=== PATIENT | female | born 1985 | race Hispanic/Latino ===

== ENCOUNTER 2021-10-08 12:59 | Emergency (ER) | payer OTHER ==
[~2021-10-08] VITALS: Ht 157.5 cm; Wt 79.4 kg
[2021-10-08 13:01] VITALS: BP 136/83
== END 2021-10-08 14:14 | disposition home or self-care (01) ==
LOC: EDH 12:59
DX: A08.4 Viral intestinal infection, unspecified (principal); B34.9 Viral infection, unspecified; Z20.822 Contact with and (suspected) exposure to COVID-19
CPT/HCPCS: 87635; 87804 ×2; 99283; C9803